=== PATIENT | male | born 1965 | race Caucasian/White ===

== ENCOUNTER 2021-02-08 14:26 | Emergency (ER) | payer OTHER ==
[2021-02-08] MEDS ORDERED: Bacitracin Oint 1 GM U/D Packet TOP ONE (15:14)
--- NOTE | 2021-02-08 15:17 | EDM.PDOC ---
<Teresa Wise - Last Filed: 02/08/21 18:54> ED HPI GENERAL MEDICAL PROBLEM - General Chief Complaint: Laceration Stated Complaint: PASSED OUT AND CUT L HAND Time Seen by Provider: 02/08/21 15:00 History Limitations: Reports: No Limitations - History of Present Illness INITIAL COMMENTS - FREE TEXT/NARRATIVE: 55 year year old male presents after syncopal episode today causing 3 cm laceration to web space between the left thumb and index finger. He reports possible dehydration due to decreased intake of water, some drinking last night and this AM. Patient reports that he did not hit his head, and loss of consciousness was brief and witnessed by a friend. No seizure like activity and he is not postictal. He is up to date on his TDAP. Had an episode of vomiting in the ER lobby and reports feeling better now. Onset: Today, Sudden Onset Date: 02/08/21 Location: Reports: Other (left hand) Quality: Reports: Throbbing Severity: Mild Improves with: Reports: None Worsens with: Reports: None Context: Reports: Other (was syncopal and sustained injury from fall. ) Associated Symptoms: Reports: Nausea/Vomiting (had an episode of nausea and vomiting in the lobby) - Related Data Allergies Allergy/AdvReac Type Severity Reaction Status Date / Time No Known Allergies Allergy Verified 02/08/21 14:53 Home Meds: Home Meds amLODIPine [Norvasc] 5 mg PO DAILY 02/08/21 [History] Past Medical History Cardiovascular History: Reports: Hypertension - Infectious Disease History Infectious Disease History: Reports: Chicken Pox - Past Surgical History Head Surgeries/Procedures: Reports: None Cardiovascular Surgical History: Reports: None Dermatological Surgical History: Reports: None Social & Family History - Tobacco Use Tobacco Use Status *Q: Never Tobacco User Second Hand Smoke Exposure: No - Caffeine Use Caffeine Use: Reports: Coffee - Recreational Drug Use Recreational Drug Use: No ED ROS GENERAL - Review of Systems Review Of Systems: See Below Constitutional: Reports: No Symptoms. Denies: Fever, Chills, Malaise, Weakness HEENT: Reports: No Symptoms Respiratory: Reports: No Symptoms. Denies: Shortness of Breath, Wheezing, Cough Cardiovascular: Reports: Syncope. Denies: Chest Pain, Palpitations Endocrine: Reports: No Symptoms GI/Abdominal: Reports: Nausea, Vomiting. Denies: Abdominal Pain, Hematemesis, Hematochezia : Reports: No Symptoms. Denies: Flank Pain, Hematuria Musculoskeletal: Reports: No Symptoms. Denies: Neck Pain, Shoulder Pain, Arm Pain, Back Pain Skin: Reports: Other (laceration to left hand web sarah beth between his index finger and thumb) Neurological: Reports: Syncope. Denies: Confusion, Dizziness, Headache, Numbness, Tremors, Trouble Speaking, Difficulty Walking, Weakness Psychiatric: Reports: No Symptoms Hematologic/Lymphatic: Reports: No Symptoms Immunologic: Reports: No Symptoms ED EXAM, SKIN/RASH Exam: See Below Exam Limited By: No Limitations General Appearance: Alert, WD/WN, No Apparent Distress Ears: Normal External Exam Nose: Normal Inspection, No Blood Throat/Mouth: Normal Inspection Head: Atraumatic. No: Facial Swelling Neck: Normal Inspection, Non-Tender, Full Range of Motion Respiratory/Chest: No Respiratory Distress, Lungs Clear, Normal Breath Sounds. No: Respiratory Distress, Crackles, Wheezing Cardiovascular: Normal Peripheral Pulses, Regular Rate, Rhythm, No Edema GI/Abdominal: Normal Bowel Sounds, Soft, Non-Tender. No: Distended (Male) Exam: Deferred Rectal (Males) Exam: Deferred Back Exam: Normal Inspection, Full Range of Motion Extremities: Normal Inspection, Normal Range of Motion, Non-Tender, No Pedal Edema Neurological: Alert, Oriented, Normal Cognition, Normal Reflexes. No: Confused, Disoriented, Slow to Respond, Unresponsive Psychiatric: Normal Affect, Normal Mood Skin: Warm, Dry, Intact Location, Skin: Other (laceration to left hand 3 cm in the web space between the thumb and index finger. ) Associated features: Tenderness Lymphatic: No Adenopathy ED SKIN PROCEDURES - Laceration/Wound Repair Left Hand Appearance: Superficial Distal NVT: Neuro & Vascular Intact, No Tendon Injury Anesthetic Type: Local Local Anesthesia - Lidocaine (Xylocaine): 1% with EPI Local Anesthetic Volume: 2cc Skin Prep: Saline Exploration/Debridement/Repair: Wound Explored, No Foreign Material Found Closed with: Sutures Lac/Wound length In cm: 3 Suture Size: 4-0 Suture Type: Prolene Course - Vital Signs Text/Narrative:: Laceration cleaned with saline and local anaesthetic lidocaine with epi 1% Sutures to be placed, bacitracin and bandage to be applied. Departure - Departure Disposition: Home, Self-Care 01 Condition: Good Clinical Impression: Laceration, Broken skin - Discharge Information Instructions: Laceration Care, Adult Referrals: PCP,None [Primary Care Provider] - Forms: ED Department Discharge Additional Instructions: Please keep wound clean and dry. You can shower and get it wet but do not soak in bath. Watch for signs of infection such as increased redness, increased pain, swelling, warmth, drainage, or fever. Stay well hydrated and return to ER if fainting re occurs, if you have persistent vomiting, altered mentation, or other concerning symptoms. Have sutures removed in 8 days. Enjoy [employer]! Sepsis Event Note (ED) - Evaluation Sepsis Screening Result: No Definite Risk <Daniel Sofia - Last Filed: 02/08/21 18:55> Course - Vital Signs Last Recorded V/S: Last Vital Signs Temp 97.1 F 02/08/21 14:54 Pulse 74 02/08/21 14:54 Resp 18 02/08/21 14:54 BP 130/82 02/08/21 14:54 Pulse Ox 95 02/08/21 14:54 - Orders/Labs/Meds Meds: Medications Discontinued Medications Generic Name Dose Route Start Last Admin Trade Name Ambrosioq PRN Reason Stop Dose Admin Bacitracin 1 dose 02/08/21 15:14 02/08/21 15:44 Bacitracin Oint 1 Gm U/D Packet TOP 02/08/21 15:15 1 dose ONETIME ONE Administration Lidocaine HCl 5 ml 02/08/21 15:14 02/08/21 15:45 Lidocaine 1% 5 Ml Sdv INJECT 02/08/21 15:15 5 ml ONETIME ONE Administration Departure - Departure Time of Disposition: 16:02 Sepsis Event Note (ED) - Focused Exam Vital Signs: Vital Signs Temp Pulse Resp BP Pulse Ox 02/08/21 14:54 97.1 F 74 18 130/82 95 02/08/21 14:49 97.1 F 74 18 130/82 95 Attestation - Student - Attestation Statement Attestation Statement: I personally performed or re-performed the physical examination and medical decision making. I have verified all student documentation or findings, including history, physical exam and/or medical decision making.
== END 2021-02-08 16:02 | disposition home or self-care (01) ==
LOC: JP.ED 14:26
DX: S61.412A Laceration without foreign body of left hand, initial encounter (principal); R55 Syncope and collapse; W26.8XXA Contact with other sharp object(s), not elsewhere classified, initial encounter; W19.XXXA Unspecified fall, initial encounter
CPT/HCPCS: 12002; 99283-25